=== PATIENT | male | born 1995 | race Caucasian/White ===

== ENCOUNTER 2019-06-05 16:33 | Emergency (ER) | payer OTHER ==
[~2019-06-05] VITALS: Ht 175.3 cm; Wt 80.0 kg
[2019-06-05 16:33] VITALS: BP 135/60
[2019-06-05] MEDS ORDERED: NORC1TAB7 PO (17:46)
[2019-06-05] MEDS ORDERED: NORCO, ANEXSIA 5/325MG TABLET (HYDROcodone/ACETAMINOPHEN) PO ONE (18:15)
--- NOTE | 2019-06-05 18:23 | REP ---
RIGHT ANKLE SERIES: Four views of the right ankle performed. There is an oblique fracture of the distal fibula which is not significantly displaced. There is moderate lateral soft tissue swelling. No other fracture or dislocation is seen. Ankle mortise is anatomic. In the distal tibial diaphysis there is a sclerotic lesion which is somewhat eccentrically located laterally in the tibial diaphysis. The lateral cortex at this location appears mildly thickened with smooth margin. This extends for a craniocaudal length of approximately 7.5 cm with a width of about 2.3 cm. 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 Differential diagnosis would also include fibrous dysplasia. Electronically Signed by Jasvir Marie MD 06/05/2019 06:24 P
--- NOTE | 2019-06-08 09:35 | ED PDOC ---
Post-Departure Follow-Up dr florez and ft jarvis moreno faxed formal report of right ankle film fo rfu Severino Lee MD Jun 08, 2019 09:35
== END 2019-06-05 18:15 | disposition home or self-care (01) ==
LOC: M ED 16:33
DX: S82.831A Other fracture of upper and lower end of right fibula, initial encounter for closed fracture (principal); M89.8X6 Other specified disorders of bone, lower leg; X50.1XXA Overexertion from prolonged static or awkward postures, initial encounter; Y92.89 Other specified places as the place of occurrence of the external cause; Y93.B9 Activity, other involving muscle strengthening exercises; Y99.1 Military activity; Z87.828 Personal history of other (healed) physical injury and trauma; F17.200 Nicotine dependence, unspecified, uncomplicated

== ENCOUNTER → 2020-10-04 | Outpatient (REF) ==
[~2020-10-04] MED LIST: NORC1TAB7 PO
--- NOTE | 2020-10-04 11:36 | REP ---
INDICATION: PAIN COMPARISON: 06/05/2019. TECHNIQUE: AP and lateral right ankle. FINDINGS: There is a healed fracture of the distal fibula. A metallic plate and multiple screws are visualized at that location. Sclerotic area in the distal tibial shaft is grossly unchanged. The ankle mortise is anatomic. IMPRESSION: Interval placement of metallic plate and multiple screws in the distal fibula for fracture at that location, which is now healed. Sclerotic area in the distal tibial shaft is grossly unchanged. <Electronically signed by Jasvir Marie > 10/04/20 [id number]
== END ==
LOC: M PLAIMG 09:24
PROVIDERS: ATTEND Internal Medicine
DX: Z00.00 Encounter for general adult medical examination without abnormal findings (principal)